=== PATIENT | male | born 1950 ===

== ENCOUNTER 2021-03-17 15:23 | Observation (INO) | payer OTHER, SELFPAY ==
--- NOTE | 2021-03-11 09:23 | ECG_ITS ---
[facility] Test Date: 2021-03-11 Pat Name: Thompson Cannon Department: Room: Gender: Male Evaluator: : 1950 Requested By: Herb Leslie Order Number: [id number] Korin MD: Александр Garcia M.D. Measurements Intervals Rule Rate: 87 P: 55 [place]: 144 QRS: 17 QRSD: 94 T: 144 QT: 365 QTc: 441 Interpretive Statements SINUS RHYTHM WITH OCCASIONAL SUPRAVENTRICULAR PREMATURE COMPLEXES MODERATE T-WAVE ABNORMALITY, CONSIDER ANTEROLATERAL ISCHEMIA [-0.1+ mV T WAVE IN V3-V6] No previous ECG available for comparison Electronically Signed On 03-11-2021 23:30:47 CDT by Александр Garcia M.D. [email or web address] centerArter[facility] International[id number]
[2021-03-11 12:18] VITALS: BMI 26.8
--- NOTE | 2021-03-11 16:33 | ANES.PREANE2 ---
Pre-Anesthetic Assessment Pre-Anesthetic Assessment: Height/Weight: Height 1.83 m Weight 89.811 kg Preop Diagnosis: Osteoarthritis Left knee Proposed Procedure: Operation Date: 03/17/21 12:00 Proposed Procedures p Total Knee Arthroplasty 21370 M17.12(Left) - Krishna Ferris MD Was Beta Mis taken within 24 hours: N/A Was Clonidine taken within 24 hours: N/A Social: Social History: Tobacco Packs per day: 1 Comment: Previously smoked 2-3 ppd, now down to 1 ppd. Exam: Pre-Anes Outpt Exam: alert, oriented x 3, clear to auscultation bilaterally and regular rate & rhythm Airway: Submandibular: WNL Cervical ROM: WNL MP: 1 Pulmonary: Pulmonary: COPD CV/HEM: CV/HEM: HTN Metabolic: Metabolic: Hyperlipidemia Anesthetic Plan: ASA status: 2 Anesthesia: Anesthesia Evaluation, Eval. for regional block and Regional (specify below) Other: Spinal + adductor canal block. Risk of > 500 ml blood loss (7ml/kg in children): No PFSH Anesthesia PFSH: Social History Smoking and tobacco status: never smoked Data Anesthesia Cardiac Studies: No Data to Display
[2021-03-17] VITALS (18 sets, daily range): BP systolic 96–142; BP diastolic 61–85; PULSE 65–92; RESP 12–20; TEMP 36.3–36.6; O2SAT 92–98
[2021-03-17] MEDS: oxyCODONE 20 mg ER (12 HR) Tablet PO (10:24)
[2021-03-17] MEDS: acetaminophen 500 mg Tablet 1000 MG PO ×2 (10:24→19:02)
[2021-03-17] MEDS: gabapentin 300 mg Capsule PO ×2 (10:24→19:02)
[2021-03-17] MEDS: CELEcoxib 200 mg Capsule 400 MG PO (10:24)
[2021-03-17] MEDS: sodium chloride 0.9% 1,000 ML 30 ML IV (10:29)
[2021-03-17 10:42] LABS: Basophils # 0.1 10^3/uL (0.0-0.1); Basophils % 0.6 %; Eosinophils # 0.2 10^3/uL (0.0-0.8); Eosinophils % 1.6 %; Hematocrit 45.1 % (42.0-52.0); Hemoglobin 15.7 g/dL (11.7-16.6); Lymphocytes # 9.9 10^3/uL (0.8-4.8); Lymphocytes % 71.4 %; Mean Corpuscular HGB Conc 34.8 g/dL (30.0-36.0); Mean Corpuscular Hemoglobin 31.9 pg (28.0-34.0); Mean Corpuscular Volume 91.7 fl (80-94); Mean Platelet Volume 10.2 fL (7.4-10.4); Monocytes # 0.4 10^3/uL (0.2-0.9); Monocytes % 2.9 %; Neutrophils # 3.25 10^3/uL (1.8-7.7); Neutrophils % 23.4 %; Nucleated Red Blood Cells % 0 %; Platelet Count 181 10^3/cmm (130-400); Red Blood Count 4.92 10^6/uL (4.1-5.3); White Blood Count 13.9 10^3/uL (4.0-10.0)
[2021-03-17 10:58] LABS: Alanine Aminotransferase 24 U/L (0-41); Albumin Level 4.4 g/dL (3.5-5.2); Alkaline Phosphatase 85 IU/L (40-130); Aspartate Amino Transferase 17 U/L (0-40); Blood Urea Nitrogen 15 mg/dL (8-23); Calcium 9.2 mg/dL (8.5-10.5); Carbon Dioxide 23 mmol/L (22-29); Chloride 104 mmol/L (98-107); Globulin 2.3 g/dL (1.3-4.6); Glucose 138 mg/dL (65-115); Osmolality Calculated 287 mOsm/kg (285-295); Sodium 137 mmol/L (136-145); Total Bilirubin 0.3 mg/dL (0.15-1.2); Total Protein 6.7 g/dL (6.6-8.7)
[2021-03-17 11:00] LABS: Anion Gap 14.1 (5-19); Potassium 4.1 mmol/L (3.5-5.1)
[2021-03-17 11:12] LABS: Slide Review Slide Review Perform
--- NOTE | 2021-03-17 12:33 | W.PM.OPSUD ---
Surgery/Procedure H&P Update DATE OF PROCEDURE: March 17, 2021 DATE H&P PERFORMED: 03/05/21 H&P UPDATE INFORMATION: I have reviewed H&P completed within last 30 days PREOP DIAGNOSIS: Osteoarthritis Left knee PLANNED PROCEDURE: Operation Date: 03/17/21 12:00 Proposed Procedures p Total Knee Arthroplasty 76117 M17.12(Left) - Krishna Ferris MD
--- NOTE | 2021-03-17 13:00 | ANES.PAUD2 ---
Pre-Anesthetic Update Pre-Anesthetic Assessment: Date of Surgery/Procedure: 03/17/21 Preop Diagnosis: Osteoarthritis Left knee Proposed Procedure: Operation Date: 03/17/21 12:00 Proposed Procedures p Total Knee Arthroplasty 84508 M17.12(Left) - rKishna Ferris MD Any changes to Pre-Anesthetic Assessment?: No Last Intake: Intake Last Liquid Date 03/16/21 Last Liquid Time 21:30 Last Solid Date 03/16/21 Last Solid Time 21:30 Labs Last 48hrs: Laboratory Results - last 48 hr 03/17/21 03/17/21 10:20 10:20 WBC 13.9 H RBC 4.92 Hgb 15.7 Hct 45.1 MCV 91.7 MCH 31.9 MCHC 34.8 RDW 13.0 Plt Count 181 MPV 10.2 Neut % (Auto) 23.4 Lymph % (Auto) 71.4 [place] % (Auto) 2.9 Eos % (Auto) 1.6 Baso % (Auto) 0.6 Neut # (Auto) 3.25 Lymph # (Auto) 9.9 H [place] # (Auto) 0.4 Eos # (Auto) 0.2 Baso # (Auto) 0.1 Nucleated RBC % (a uto) 0 Nucleated RBCs # 0.0 Sodium 137 Potassium 4.1 Chloride 104 Carbon Dioxide 23 Anion Gap 14.1 BUN 15 Creatinine 0.5 L GFR Calculation Not Reportable Glucose 138 H Calculated Osmolal ity 287 Calcium 9.2 Total Bilirubin 0.3 AST 17 ALT 24 Alkaline Phosphata se 85 Total Protein 6.7 Albumin 4.4 Globulin 2.3 Vitals: Temperature 97.8 F 03/17/21 10:07 Temperature Source Temporal Artery S can 03/17/21 10:07 Pulse Rate 89 03/17/21 10:07 Pulse Rhythm 03/17/21 10:07 Pulse Strength 3+ Normal 03/17/21 10:07 Respiratory Rate 18 03/17/21 10:07 Blood Pressure 130/75 03/17/21 10:07 Blood Pressure Meaghan n 93 03/17/21 10:07 Pulse Oximetry 95 03/17/21 10:07 Oxygen Delivery Me thod 03/17/21 10:07 Exam: Pre-Anes Outpt Exam: alert, oriented x 3, clear to auscultation bilaterally and regular rate & rhythm Cardiac Studies: No Data to Display
--- NOTE | 2021-03-17 13:00 | ANES.PROC ---
Anesthesia Procedures Procedure/Date: 03/17/21 Nerve Block ^: Nerve Block 1: Main Anesthesia: spinal anesthesia block Time Out Performed: No Consent: requested by attending/covering physician, from patient, risks and benefits reviewed and patient agrees to proceed Nerve block location: adductor canal (L) Anesthesia monitors applied: pulse oximetry, EKG, BP cuff and oxygen Anesthetic Used: ropivicaine 0.5% and with decadron (4) Amount of anesthesia used (mL): 30 Ultrasound used to: recognize landmarks and visualize and ID femerol nerve Nerve Stimulator Used?: No Interscalene/Femoral BLK: 4 stimuplex 21 g needle used for position and inplane approach, visualize local anesthetic spread and no vascular puncture identified Patient Tolerated Procedure: well and no complications Complications: none
--- NOTE | 2021-03-17 13:18 | P.ANESUD_ITS ---
Pre-Anesthetic Update Pre-Anesthetic Assessment: Date of Surgery/Procedure: 03/17/21 Preop Laurence gnosis: Osteoarthritis Left knee Proposed Procedure: Operation Date: 03/17/21 12:00 Proposed Procedures p Total Knee Arthroplasty 41367 M17.12(Left) - Krishna Ferris MD Any changes to Pre-Anesthetic Assessment?: No Last Intake: Intake Last Liquid Date 03/16/21 Last Liquid Time 21:30 Last Solid Date 03/16/21 Last Solid Time 21:30 Labs Last 48hrs: Laboratory Results - last 48 hr 03/17/21 03/17/21 10:20 10:20 WBC 13.9 H RBC 4.92 Hgb 15.7 Hct 45.1 MCV 91.7 MCH 31.9 MCHC 34.8 RDW 13.0 Plt Count 181 MPV 10.2 Neut % (Auto) 23.4 Lymph % (Auto) 71.4 [place] % (Auto) 2.9 Eos % (Auto) 1.6 Baso % (Auto) 0.6 Neut # (Auto) 3.25 Lymph # (Auto) 9.9 H [place] # (Auto) 0.4 Eos # (Auto) 0.2 Baso # (Auto) 0.1 Nucleated RBC % (a uto) 0 Nucleated RBCs # 0.0 Sodium 137 Potassium 4.1 Chloride 104 Carbon Dioxide 23 Anion Gap 14.1 BUN 15 Creatinine 0.5 L GFR Calculation Not Reportable Glucose 138 H Calculated Osmolal ity 287 Calcium 9.2 Total Bilirubin 0.3 AST 17 ALT 24 Alkaline Phosphata se 85 Total Protein 6.7 Albumin 4.4 Globulin 2.3 Vitals: Temperature 97.8 F 03/17/21 10:07 Temperature Source Temporal Artery S can 03/17/21 10:07 Pulse Rate 89 03/17/21 10:07 Pulse Rhythm 03/17/21 10:07 Pulse Strength 3+ Normal 03/17/21 10:07 Respiratory Rate 18 03/17/21 10:07 Blood Pressure 130/75 03/17/21 10:07 Blood Pressure Meaghan n 93 03/17/21 10:07 Pulse Oximetry 95 03/17/21 10:07 Oxygen Delivery Me thod 03/17/21 10:07 Exam: Pre-Anes Outpt Exam: alert, oriented x 3, clear to auscultation bilaterally and regular rate & rhythm Cardiac Studies: No Data to Display
[2021-03-17] MEDS: tranexamic acid 1,000 mg/10mL SDV 1000 MG IV (14:01)
[2021-03-17] MEDS: tranexamic acid 1,000 mg/10mL SDV 1000 MG IRRIGATION (14:02)
[2021-03-17] MEDS: ketorolac 30 mg/mL INJ IM (14:03)
[2021-03-17] MEDS: EPINEPHrine 1 mg/mL INJ XX (14:04)
--- NOTE | 2021-03-17 15:43 | PM.OP ---
Operative Report Date of procedure: March 17, 2021 Pre-op Diagnosis: Osteoarthritis Left knee Post-op diagnosis: same Post-op Findings: Same Procedure Done: Left total knee arthroplasty Pathology: none sent Surgeon: Krishna Ferris Anesthesia: Nerve Block (Spinal, adductor canal block) Estimated blood loss (mL): 200 Findings: The patient had eburnated bone over the medial femoral condyle, medial tibial plateau, patella and trochlea Condition: stable Disposition: PACU Procedure: The patient was taken to the operating room. Patient was given 1 g of tranexamic acid . The above anesthesia provided by the anesthesia service. A timeout was performed. The patient was prepped and draped in the usual fashion with the lower extremity exposed. A anterior incision was made, midline, from a point proximal to the patella to the distal tibial tubercle. The knee was entered through a medial parapatellar approach. The patella could be displaced laterally and the knee flexed. The patellar fat pad was resected to provide better visibility. Retractors were placed medially and laterally adjacent to the tibial plateau. The femoral canal was drilled in line with the longitudinal axis of the femur. Intramedullary femoral guide for used to make a distal femoral cut in 5 degrees of valgus, resecting 8 mm from the more prominent condyle. Next the extra medullary tibial guide was placed in alignment with the longitudinal axis of the tibia. The cutting guides were set to remove just over 9 mm from the high tibial plateau. The proximal tibia was then cut. The femoral measuring guide was then placed over the distal femur. Rotation was verified checking the relationship of the guide to the condyle and the trochlear groove. The femur was measured and cut for the desired femoral component. The desired tibial baseplate was then chosen. A trial reduction with the femur tibial baseplate and polyethylene was done, assuring that the knee was stable throughout full motion. Ligament balancing involved a release of the deep medial collateral ligament only.The tibia was prepared for the tibial baseplate. Patellar thickness was then measured. The patella was cut removing articular cartilage and prepared for appropriate size patellar button. surfaces were cleaned with a gentamicin solution. The femur tibia and patella were then press-fit into place. The posterior capsule and collateral ligaments were then injected with a solution of 100 mL of 0.2% ropivacaine, 1 mL of a 1:1000 epinephrine solution, 30 mg of Toradol, and 1 g of tranexamic acid. final polyethylene component was then snapped into place into the tibia. The extensor retinaculum was closed with a running 1 Stratafix.. The subcutaneous tissues were closed with 2-0 Vicryl and the skin was closed with a running 4-0 Stratafix. The wound was covered with a Dermabond Prinio dressing. It was covered with 4xrs and a compressive Tubigauae was applied. The patient was taken to recovery room in stable condition. [employer] total knee arthroplasty components were used includin) Size 5 triathalon cruciate retaining femoral component 2) Size 5 Tritanium tibial component 3) 35 mm /10 mm thickness Tritanium asymetric patella 4) Size 5/9 mm thickness CR tibial bearing insert
--- NOTE | 2021-03-17 15:49 | XRR_ITS ---
PROCEDURE INFORMATION: Exam: XR Left Knee Exam date and time: 03/17/2021 3:49 PM Age: 70 years old Clinical indication: Recent left total knee arthroplasty. Postoperative 0-2 days. TECHNIQUE: Imaging protocol: XR Left knee. Views: 1 or 2 views. COMPARISON: No relevant prior studies available. FINDINGS: Bones/joints: A left total knee arthroplasty is identified. No hardware complication or failure is seen. Patella baja is noted; correlate for quadriceps dysfunction. No acute fracture is identified. No gross effusion. Soft tissues: Gas is noted within the joint and in the soft tissues surrounding the joint; likely related to recent surgery. XR/XR knee LT 1-2V 48439 IMPRESSION: 1. A left total knee arthroplasty is identified. No hardware complication or failure is seen. 2. Gas is noted within the joint and in the soft tissues surrounding the joint; likely related to recent surgery. 3. Patella baja is noted; correlate for quadriceps dysfunction. 4. No acute fracture is identified. Radiation Dose CTDIVOL = (mGy): DLP = (mGy-cm)
[2021-03-17] MEDS: sodium chloride 0.9% 1,000 ML 100 ML IV (16:20)
--- NOTE | 2021-03-17 18:55 | ANE.PACU2 ---
Inpatient post-anesthesia follow up: Airway intact: Yes Vital signs: Temperature 97.5 F Pulse Rate 87 Respiratory Rate 18 Blood Pressure 127/83 Pulse Oximetry 97 Oxygen Delivery Me thod Room Air Oxygen Flow Rate Fraction of Inspir ed Oxygen Hydration adequate: Yes Nausea and vomiting: No Pain level: 2 Mental status: Baseline
[2021-03-17] MEDS: sennosides-docusate Tablet 2 TAB PO (19:02)
[2021-03-17] MEDS: oxyCODONE 5 mg IR Tab/Cap PO (19:57)
[2021-03-17] MEDS: morphine 4 mg/mL SDV 1 mL 2 MG IVP (22:47)
[2021-03-18 01:47] VITALS: RESP 15
[2021-03-18] MEDS: morphine 4 mg/mL SDV 1 mL 2 MG IVP (01:47)
[2021-03-18] MEDS: sodium chloride 0.9% 1,000 ML 100 ML IV (03:05)
[2021-03-18 04:16] VITALS: BP 114/73; PULSE 79; RESP 16; TEMP 36.1; O2SAT 95
[2021-03-18 04:17] LABS: Hemoglobin 13.5 g/dL (11.7-16.6)
[2021-03-18 07:54] VITALS: RESP 16
[2021-03-18] MEDS: oxyCODONE 5 mg IR Tab/Cap PO (07:54)
[2021-03-18] MEDS: gabapentin 300 mg Capsule PO (09:22)
[2021-03-18] MEDS: sennosides-docusate Tablet 2 TAB PO (09:24)
[2021-03-18] MEDS: CELEcoxib 200 mg Capsule PO (09:25)
[2021-03-18 09:44] VITALS: BP 130/69; PULSE 88; RESP 19; TEMP 37.2; O2SAT 95
--- NOTE | 2021-03-18 09:51 | PC.NURSE ---
Ashby removed Ashby removed after bulb deflated of 9mls of normal saline catheter removed aseptically without difficulty patient tolerated well 100 mls of urine emptied no odor color yellow slightly cloudy
--- NOTE | 2021-03-18 10:20 | P.DS_ITS ---
Discharge Providers Date of Admission: 03/17/21 15:23 Date of Discharge: March 18, 2021 Attending Provider at Admission: Krishna Ferris MD Attending Provider at Discharge: Krishna Ferris MD Primary Care Provider: Oscar Elizabeth MD Diagnoses at Discharge Discharge Diagnosis (1) Status post left knee replacement: Status: Acute (2) Osteoarthritis of left knee: Status: Resolved Reason for Visit Reason for Visit: Arthritis of left knee Hospital Course Hospital Course The patient tolerated surgery well. They remained hemodynamically stable. They was begun on aspirin and foot pumps for DVT prophylaxis. The patient was m obilized with therapy beginning the day of surgery and by the first postoperative day independent with the walker. As the pain was adequately controlled and they were fully mobile they were discharged home. Physical Exam Narrative: EXAM NARRATIVE: On the day of discharge his knee incision was clean. They had no drainage. There is minimal swelling in the thigh and knee and the calf. No distal neurovascular deficits were noted Urinary Catheter Management^: Ashby: Cath Placed During This Visit: yes Urinary Catheter Date of Insertion: 03/17/21 Urinary Catheter Time of Insertion: 13:45 Discharge Data Data Completed and Pending: Completed Studies During Hospitalization Category Date Time Status XR knee LT 1-2V 7 3560 Routine Exams 03/17/21 15:49 Completed Labs from last 24 hours 03/18/21 03/17/21 03/17/21 04:12 10:20 10:20 WBC 13.9 H RBC 4.92 Hgb 13.5 15.7 Hct 45.1 MCV 91.7 MCH 31.9 MCHC 34.8 RDW 13.0 Plt Count 181 MPV 10.2 Neut % (Auto) 23.4 Lymph % (Auto) 71.4 [place] % (Auto) 2.9 Eos % (Auto) 1.6 Baso % (Auto) 0.6 Neut # (Auto) 3.25 Lymph # (Auto) 9.9 H [place] # (Auto) 0.4 Eos # (Auto) 0.2 Baso # (Auto) 0.1 Nucleated RBC % (a uto) 0 Nucleated RBCs # 0.0 Sodium 137 Potassium 4.1 Chloride 104 Carbon Dioxide 23 Anion Gap 14.1 BUN 15 Creatinine 0.5 L GFR Calculation Not Reportable Glucose 138 H Calculated Osmolal ity 287 Calcium 9.2 Total Bilirubin 0.3 AST 17 ALT 24 Alkaline Phosphata se 85 Total Protein 6.7 Albumin 4.4 Globulin 2.3 Vitals: Last Vital Signs Temp 98.9 F 03/18/21 09:44 Pulse 88 03/18/21 09:44 Resp 19 H 03/18/21 09:44 BP 130/69 03/18/21 09:44 Pulse Ox 95 03/18/21 09:44 Discharge Plan Discharge Patient Disposition: Home Condition: Stable Prescriptions: New oxycodone 5 mg Tablet 5 mg PO Q4H PRN (Reason: Moderate Pain) 7 Days Qty: 40 RF: 0 celecoxib 200 mg Capsule 200 mg PO Q12H 14 Days Qty: 28 RF: 0 gabapentin 300 mg Capsule 300 mg PO BID 7 Days Qty: 14 RF: 0 acetaminophen [Tylenol Extra Strength] 500 mg tablet 1,000 mg PO Q8H 14 Days Qty: 84 RF: 0 Continued pravastatin 40 mg tablet 40 mg PO DAILY RF: 0 cholecalciferol (vitamin D3) 25 mcg (1,000 unit) capsule 25 mcg PO DAILY RF: 0 finasteride 5 mg tablet 5 mg PO DAILY RF: 0 tamsulosin 0.4 mg capsule 0.4 mg PO DAILY RF: 0 allopurinol 100 mg tablet 100 mg PO DAILY RF: 0 aspirin [Adult Aspirin Regimen] 81 mg tablet,delayed release (DR/EC) 81 mg PO DAILY RF: 0 bupropion HCl 100 mg tablet 100 mg PO BID RF: 0 mupirocin 2 % ointment 1 applic topical BID Qty: 15 RF: 0 lisinopril 5 mg Tablet 5 mg PO DAILY RF: 0 Held ibuprofen 100 mg tablet 200 mg PO Q6H RF: 0 Hold Instructions: Resume on 04/01/21. diclofenac sodium 75 mg tablet,delayed release (DR/EC) 75 mg PO BID RF: 0 Hold Instructions: Resume on 04/01/21. Discharge Orders: Discharge Order (Routine); Ordered 03/18/21 Ordered By: Krishna Ferris Other Ambulatory Orders: DME: Ta (Order) Location: None Selected Ordered By: Krishna Ferris Physical Therapy Eval and Treat Outpatient (Order) Timeframe: 2 Weeks Facility: [facility] - Location: Physical Therapy Ordered By: Krishna Ferris Referrals: Krishna Ferris MD [Physician] - 03/21/21 9:30 am Discharge Diet: Advance as tolerated Discharge Activity: Limit activity as instructed Patient Instructions: Opioid Safety Activity Restrictions/Additional Instructions: Okay to shower Keep Tubigauze sleeve in place for swelling. Okay to remove for hygiene. Apply FirstIce up to 20 min/hr for pain and swelling Take Celebrex twice a day for the next 15 days for pain , discontinue other anti-inflammatories Take Neurontin twice a day for 7 days. Take Tylenol 500mg (1-2 tabs) as needed 3 times a day for mild pain take oxycodone for breakthrough pain. Exercises per outpatient physical therapy. May weight-bear as tolerated on total knee arthroplasty Discharge Attestations Time Spent in Discharge Care*: other Quality Metrics Clinical Quality Measures During this hospital stay, did patient experience: None Coding Level of Care Code Acute [facility] note Diagnoses Status post left knee replacement Z96.652 Osteoarthritis of left knee M17.12
[2021-03-18 14:00] VITALS: BP 130/69; PULSE 88; RESP 18; TEMP 37.2; O2SAT 95
== END 2021-03-18 14:00 | disposition home or self-care (01) ==
LOC: OBGYN 15:24
PROVIDERS: Anesthesiology; Admitting Provider Orthopaedic Surgery; PCP Obstetrics & Gynecology Maternal & Fetal Medicine; Visit Provider Orthopaedic Surgery
PROC: (CPT 27447; principal; 2021-03-17 11:50)
DX: M17.12 Unilateral primary osteoarthritis, left knee (principal); J44.9 Chronic obstructive pulmonary disease, unspecified; I10 Essential (primary) hypertension; E78.5 Hyperlipidemia, unspecified; F17.210 Nicotine dependence, cigarettes, uncomplicated; Z79.82 Long term (current) use of aspirin; Z79.899 Other long term (current) drug therapy
CPT/HCPCS: 27447; 36415; 51702; 64447; 73560; 76942; 80053; 85018; 85025; 87635; 93005; 97110; 97116; 97161; 97165; C1776; G0378; J0171; J0690; J1100; J1580; J1885; J2250; J2270; J2704; J2795; J7030

== ENCOUNTER → 2021-04-16 14:03 | Outpatient (BNVA) | payer OTHER, SELFPAY | PROVIDERS: PCP Obstetrics & Gynecology Maternal & Fetal Medicine; Visit Provider Orthopaedic Surgery | DX: Z96.652 Presence of left artificial knee joint (principal) | CPT/HCPCS: 73560; 73565 ==